=== PATIENT | female | born 1990 | race Caucasian/White ===

== ENCOUNTER 2019-10-23 05:30 | Day surgery (SDC) | payer OTHER | END 2019-10-23 18:25 | disposition home or self-care (01) | LOC: CIR.AMB 05:30 | DX: O02.1 Missed abortion (principal) ==

== ENCOUNTER 2020-09-24 13:54 | Outpatient (CLI) | payer OTHER ==
[2020-09-25] MEDS ORDERED: PRENATAL TABLE1 EAC1 PO (07:03)
== END 2020-09-24 15:07 | disposition home or self-care (01) ==
LOC: NST 13:54
PROVIDERS: ATTEND Obstetrics & Gynecology Maternal & Fetal Medicine
DX: Z34.83 Encounter for supervision of other normal pregnancy, third trimester (principal)

== ENCOUNTER 2020-09-24 14:45 | Inpatient (IN) | payer OTHER ==
[~2020-09-24] VITALS: Ht 165.1 cm; Wt 83.9 kg
[2020-09-25] MEDS ORDERED: PRENATAL TABLE1 EAC1 PO (07:03)
== END 2020-09-27 13:51 | disposition home or self-care (01) | DRG 807 ==
LOC: OB/GYN 09-25 06:47 → LDR 09-25 06:47 → OB/GYN 09-25 14:45
PROVIDERS: ADMIT Obstetrics & Gynecology Maternal & Fetal Medicine; ATTEND Obstetrics & Gynecology Maternal & Fetal Medicine
PROC: 10E0XZZ Delivery of Products of Conception, External Approach (ICD-10-PCS; principal; 2020-09-25)
PROC: 0HQ9XZZ Repair Perineum Skin, External Approach (ICD-10-PCS; 2020-09-25)
PROC: 10907ZC Drainage of Amniotic Fluid, Therapeutic from Products of Conception, Via Natural or Artificial Opening (ICD-10-PCS; 2020-09-25)
PROC: 3E033VJ Introduction of Other Hormone into Peripheral Vein, Percutaneous Approach (ICD-10-PCS; 2020-09-25)
PROC: 4A1HXFZ Monitoring of Products of Conception, Cardiac Rhythm, External Approach (ICD-10-PCS; 2020-09-25)
DX: O70.0 First degree perineal laceration during delivery (principal); Z37.0 Single live birth; O36.63X0 Maternal care for excessive fetal growth, third trimester, not applicable or unspecified; Z3A.39 39 weeks gestation of pregnancy; Z20.822 Contact with and (suspected) exposure to COVID-19

== ENCOUNTER 2021-01-08 09:04 | Day surgery (SDC) | payer OTHER ==
[~2021-01-08 09:04] MED LIST: PRENATAL TABLE1 EAC1 PO
== END 2021-01-08 21:45 | disposition home or self-care (01) ==
LOC: CIR.AMB 09:04
PROVIDERS: ATTEND Obstetrics & Gynecology
DX: D27.1 Benign neoplasm of left ovary (principal); N83.512 Torsion of left ovary and ovarian pedicle; Z20.822 Contact with and (suspected) exposure to COVID-19

== ENCOUNTER 2025-02-05 14:15 | Inpatient (IN) | payer OTHER ==
[~2025-02-05] VITALS: Ht 160 cm; Wt 81.6 kg
[2025-02-14] VITALS (7 sets, daily range): BP systolic 94–123; BP diastolic 56–74
[2025-02-14] MEDS ORDERED: MORPHINE SULFATE 4 MG/ML CARTRIDGE IV PRN (06:45)
[2025-02-14] MEDS ORDERED: RINGERS SOLUTION,LACTATED 1,000 ML IV SCH (06:45)
[2025-02-14] MEDS ORDERED: OXYTOCIN 500 ML IV ONE (06:45)
[2025-02-14] MEDS ORDERED: OXYTOCIN 20 UNITS/500ML RL PIGGYBAG IV ONE (07:21)
[2025-02-14] MEDS ORDERED: PRENATAL TABLE1 EAC4 PO (08:08)
[2025-02-14 08:32] LABS: BASO % 0.3 % (0.1-1.2); EOS # 0.09 (0.04-0.54); EOS % 0.8 % (0.7-7.0); HEMATOCRIT 33.9 % (34.1-44.9); HEMOGLOBIN 11.4 g/dL (11.2-15.7); LYMPH # 1.99 (1.18-3.74); LYMPH % 17.5 % (19.3-53.1); MEAN CORPUSCULAR HEMOGLOBIN 29.6 pg (25.6-32.2); MONO # 0.95 (0.24-0.82); MONO % 8.4 % (4.7-12.5); NEUT # 8.22 (1.56-6.13); NEUT % 72.5 % (34.0-71.1); PLATELET COUNT 248 K/uL (163-369); RED BLOOD COUNT 3.85 M/uL (3.93-5.22); RED CELL DISTRIBUTION WIDTH 14.5 % (11.6-14.4)
[2025-02-14 08:41] LABS: URINE APPEARANCE Clear; URINE BILIRRUBIN Negative (NEGATIVE); URINE BLOOD Trace; URINE COLOR Yellow; URINE GLUCOSE Negative (NEGATIVE); URINE KETONE Negative (NEGATIVE); URINE LEUKOCYTE Small; URINE NITRATE Negative; URINE PROTEIN Negative (NEGATIVE); URINE UROBILINOGEN 0.2 E.U./dl
[2025-02-14 08:42] LABS: URINE BACTERIA 121.1 uL (0.0-1933); URINE EPITHELIAL CELLS 27.8 uL (0.0-38.8); URINE RBC 15.1 uL (0.0-20.8); URINE WBC 4.5 uL (0.0-23.2)
[2025-02-14 08:59] LABS: INR 0.95; PARTIAL THROMBOPLASTIN TIME 27.3 SECONDS (22.0-34.0); PROTHROMBIN TIME 10.4 SECONDS (9.0-11.5)
[2025-02-14 09:12] LABS: URINE CAST 0.29 uL (0.0-1.40)
[2025-02-14 09:35] LABS: ALBUMIN 2.8 gm/dL (3.4-5.0); BILIRUBIN TOTAL 0.3 mg/dL (0.3-1.2); CALCIUM 8.9 mg/dL (8.5-10.1); CREATININE SERUM 0.43 mg/dL (0.55-1.02); GFR 170.16; GLOBULINA 3.4 G/DL (2.4-3.5); POTASSIUM 4.35 mEq/L (3.5-5.1); TOTAL PROTEIN 6.2 gm/dL (6.4-8.2)
[2025-02-14] MEDS ORDERED: ERYTHROMYCIN BASE OPHT 1GM EACH TUBE OP ONE ×2 (13:51→15:30)
[2025-02-14] MEDS ORDERED: LIDOCAINE HCL 1% 10ML VIAL ONE (13:52)
[2025-02-14] MEDS ORDERED: CHLORHEXIDINE GLUCONATE 120 ML BOTTLE TOP ONE ×2 (13:52→15:30)
[2025-02-14] MEDS ORDERED: OXYTOCIN 20 UNITS/1000ML RL PIGGYBAG IV ONE (13:52)
[2025-02-14] MEDS ORDERED: METHYLERGONOVINE MALEATE 0.2 MG/ML AMPUL ONE (14:05)
[2025-02-14] MEDS ORDERED: CARBOPROST TROMETHAMINE 250 MCG/ML AMPUL IM ONE (14:09)
[2025-02-14] MEDS ORDERED: METHYLERGONOVINE MALEATE 0.2 MG/ML AMPUL IV STA (14:24)
[2025-02-14] MEDS ORDERED: CARBOPROST TROMETHAMINE 250 MCG/ML AMPUL IM STA (14:24)
[2025-02-14] MEDS ORDERED: IBUprofen 400 MG TABLET PO PRN (14:30)
[2025-02-14] MEDS ORDERED: OxyCODONE HCL/APAP UD (PERCOCET) PO PRN (14:30)
[2025-02-14] MEDS ORDERED: OXYTOCIN 1,000 ML IV SCH (14:30)
[2025-02-14] MEDS ORDERED: LIDOCAINE HCL 1% 10ML VIAL IJ ONE (15:30)
[2025-02-14] MEDS ORDERED: OxyCODONE HCL 5 MG TABLET (ROXICODONE) PO PRN (15:30)
[2025-02-14] MEDS ORDERED: ACETAMINOPHEN 325 MG TABLET PO SCH (17:00)
[2025-02-15 01:30] VITALS: BP 92/64
[2025-02-15 09:28] LABS: BASO % 0.1 % (0.1-1.2); EOS # 0.04 (0.04-0.54); EOS % 0.3 % (0.7-7.0); HEMATOCRIT 30.5 % (34.1-44.9); HEMOGLOBIN 10.3 g/dL (11.2-15.7); LYMPH # 1.77 (1.18-3.74); LYMPH % 12.4 % (19.3-53.1); MEAN CORPUSCULAR HEMOGLOBIN 29.5 pg (25.6-32.2); MONO # 0.99 (0.24-0.82); MONO % 6.9 % (4.7-12.5); NEUT # 11.35 (1.56-6.13); NEUT % 79.5 % (34.0-71.1); PLATELET COUNT 257 K/uL (163-369); RED BLOOD COUNT 3.49 M/uL (3.93-5.22); RED CELL DISTRIBUTION WIDTH 14.6 % (11.6-14.4)
[2025-02-15 10:48] VITALS: BP 109/67
[2025-02-15 16:00] VITALS: BP 109/71
[2025-02-16 01:15] VITALS: BP 99/61
[2025-02-16 10:06] VITALS: BP 98/60
== END 2025-02-16 15:13 | disposition home or self-care (01) | DRG 807 ==
LOC: LDR 02-14 06:00 → OB/GYN 02-14 15:05
PROVIDERS: Obstetrics & Gynecology; ADMIT Obstetrics & Gynecology; ATTEND Obstetrics & Gynecology
PROC: 10E0XZZ Delivery of Products of Conception, External Approach (ICD-10-PCS; principal; 2025-02-14)
PROC: 0UQG7ZZ Repair Vagina, Via Natural or Artificial Opening (ICD-10-PCS; 2025-02-14)
PROC: 4A1HXCZ Monitoring of Products of Conception, Cardiac Rate, External Approach (ICD-10-PCS; 2025-02-14)
DX: O71.4 Obstetric high vaginal laceration alone (principal); Z37.0 Single live birth; Z3A.39 39 weeks gestation of pregnancy

== ENCOUNTER 2025-02-12 12:07 | Outpatient (CLI) | payer OTHER | END 2025-02-12 13:08 | disposition home or self-care (01) | LOC: NST 12:07 | PROVIDERS: ATTEND Obstetrics & Gynecology Gynecology | DX: Z34.83 Encounter for supervision of other normal pregnancy, third trimester (principal) ==